=== PATIENT | male | born 1965 | race Caucasian/White ===

== ENCOUNTER 2021-12-27 15:50 | Outpatient (CLI) | payer OTHER | END 2021-12-27 15:51 | disposition home or self-care (01) | LOC: CSHCT 15:50 | PROVIDERS: ATTEND Family Medicine | DX: E78.2 Mixed hyperlipidemia (principal); I25.10 Atherosclerotic heart disease of native coronary artery without angina pectoris; I25.84 Coronary atherosclerosis due to calcified coronary lesion | CPT/HCPCS: 75571 ==